=== PATIENT | male | born 1995 | race African-American/Black ===

== ENCOUNTER 2018-04-09 14:50 | Emergency (ER) | payer MEDICAID ==
[~2018-04-09] VITALS: Ht 180.3 cm; Wt 127.0 kg
[~2018-04-09 14:50] MED LIST: NORPTMEDS CO
[2018-04-09 15:00] VITALS: BP 135/81
== END 2018-04-09 16:33 | disposition home or self-care (01) ==
LOC: ER 15:00
DX: S93.402A Sprain of unspecified ligament of left ankle, initial encounter (principal); Z88.6 Allergy status to analgesic agent; X50.1XXA Overexertion from prolonged static or awkward postures, initial encounter; Y93.02 Activity, running; Y92.832 Beach as the place of occurrence of the external cause; Y99.8 Other external cause status
CPT/HCPCS: 73610; 73630

== ENCOUNTER 2018-06-27 05:50 | Emergency (ER) | payer MEDICAID ==
[~2018-06-27] VITALS: Ht 172.7 cm; Wt 133.4 kg
[2018-06-27 06:06] VITALS: BP 149/97
[2018-06-27 06:23] LABS: Urine Bacteria NONE SEEN /hpf (None Seen); Urine Blood Negative /uL (Negative); Urine Specific Gravity 1.013 (1.001-1.035); Urine WBC 2 /hpf (0 - 3)
== END 2018-06-27 08:32 | disposition home or self-care (01) ==
LOC: ER 05:53
DX: N39.0 Urinary tract infection, site not specified (principal); M54.9 Dorsalgia, unspecified; G89.29 Other chronic pain; Z88.8 Allergy status to other drugs, medicaments and biological substances
CPT/HCPCS: 72131; 74176; 81001